=== PATIENT | female | born 1975 | race Caucasian/White ===

== ENCOUNTER 2022-11-28 22:21 | Inpatient (IN) | payer BC, SELFPAY ==
[2022-11-28 22:22] VITALS: BP 117/81; PULSE 96; RESP 16; TEMP 37.3; O2SAT 98; BMI 26.4
[2022-11-28 22:46] LABS: Bacteria 0 SEEN /hpf (None Seen); Mucous, Urine 0 SEEN /hpf (<or=2+); Red Blood Cells-Urine 0 SEEN /hpf (0-5); Squamous Epithelial Cells - UA 0 SEEN /hpf (5-10); White Blood Cells 0 SEEN /hpf (0-5)
[2022-11-28 22:46] LABS: Absolute Lymphocyte Count 1.08 X10^3/uL (0.83-4.51); Basophil# 0.04 X10^3/uL; Basophil% 0.3 % (0-1); Eosinophil# 0.06 X10^3/uL; Eosinophils% 0.4 % (0-5); Hematocrit 41.4 % (37-47); Hemoglobin 14.4 g/dL (12.0-15.0); Lymphocyte # 1.08 X10^3/ul (0.83-4.51); Lymphocyte % 7.2 % (19-41); Mean Corp Hgb Conc 34.8 g/dL (32-36); Mean Corpuscular Hgb 30.8 pg (27.0-32.0); Mean Corpuscular Volume 88.5 fL (81-99); Mean Platelet Vol. 9.8 fl (6.2-12.0); Monocyte# 0.83 X10^3/uL; Monocyte% 5.5 % (0-10); NRBC Flagged by Analyzer 0 % (0-5); Neutrophil # 12.95 X10^3/uL (2.7-7.7); Neutrophil % 86.3 % (47-70); Platelet Count 246 K/mm3 (150-450); RBC Distribution Width CV 11.9 % (11.6-14.6); RBC Distribution Width SD 38.2 fl (35.1-43.9); Red Blood Count 4.68 M/mm3 (4.2-5.4)
[2022-11-28 22:58] LABS: Color, Urine Yellow (Yellow); Glucose, Dipstick Normal (Normal); Ketone-Dipstick Negative (Negative); Leukocyte Esterase-Dipstick Negative /ul (Negative); Nitrite-Dipstick Negative (Negative); Occult Blood-Urine 10 /ul (Negative); Protein-Dipstick Negative (Negative); Urine Bilirubin Dipstick Negative (Negative); Urine Clarity Clear (Clear); Urine Urobilinogen Normal (Normal)
[2022-11-28 23:01] LABS: Internal QC Validated? YES +Cl - CLEAR BKGD; Pregnancy, Serum, hCG Quali. NEGATIVE Negative
[2022-11-28 23:25] LABS: Anion Gap 8 (5-15); BUN 9 mg/dL (7-18); BUN/Creat Ratio 12.4 RATIO (10-20); Calcium,Total 9.7 mg/dL (8.5-10.1); Chloride 106 mmol/L (98-107); Creatinine, Serum 0.72 mg/dL (0.55-1.02); EST Glomerular Filtration Rate 92 mL/min (>60); Est Glom Filt Rate - Afr Amer 111 mL/min (>60); Estimated Creatinine Clearance 94.94 ml/min; Glucose 129 mg/dL (74-106); Potassium 4.8 mmol/L (3.5-5.1); Sodium Level 137 mmol/L (136-145)
[2022-11-29] VITALS (8 sets, daily range): BP systolic 126–146; BP diastolic 75–105; PULSE 79–85; RESP 14–19; TEMP 36.6–37.3; O2SAT 96–99; BMI 26.1
--- NOTE | 2022-11-29 00:59 | CT_ITS ---
We are attempting to reach an attending provider to discuss findings. An addendum with communication details will be sent when the communication is complete. EXAM: CT ABDOMEN AND PELVIS WITH INTRAVENOUS CONTRAST CLINICAL INDICATION: LLQ pain TECHNIQUE: Helically acquired images were obtained of the abdomen and pelvis with intravenous contrast. This CT exam was performed using one or more of the following dose reduction techniques: automated exposure control, adjustment of the mA and/or kV according to patient size, and/or use of iterative reconstruction technique. This report was created using [employer] report api[employer]mat technology. CONTRAST: 100 cc of Isovue-300 IV. RADIATION DOSE: CTDIvol = 17.01 mGy, DLP = 899.68 mGy-cm. COMPARISON: None. FINDINGS: LOWER THORAX: Unremarkable. Lung bases are clear. No cardiomegaly. No significant pericardial effusion. ABDOMEN: LIVER: There is diffuse low-attenuation of the liver. GALLBLADDER AND BILE DUCTS: Unremarkable. No calcified gallstones. No gallbladder distention or wall edema. No intra- or extrahepatic biliary ductal dilation. PANCREAS: Unremarkable. No focal cystic or solid mass. SPLEEN: Unremarkable. Normal size without focal cystic or solid mass. ADRENALS: Unremarkable. No nodules. KIDNEYS AND URETERS: Multiple small cysts right kidney. Normal renal size and position. No hydronephrosis. STOMACH AND BOWEL: Marked edematous wall thickening of the proximal sigmoid colon in an area of numerous diverticula over a length of about 7 cm with marked pericolonic edema and small extraluminal gas bubbles. No discrete fluid collection identified. No stomach or bowel distention. PELVIS: APPENDIX: Normal appendix. BLADDER: Unremarkable. REPRODUCTIVE: IUD in the uterus. ABDOMEN and PELVIS: INTRAPERITONEAL SPACE: See above. BONES/JOINTS: Unremarkable. No suspicious lytic or blastic abnormality. SOFT TISSUES: Unremarkable. No discrete abdominal or pelvic wall hernia. VASCULATURE: Unremarkable. Abdominal aorta is non-dilated. LYMPH NODES: Unremarkable. No enlarged lymph nodes. CT/Abdomen/Pelvis W IV Cont ONLY IMPRESSION: 1. Perforated diverticulitis involving the proximal sigmoid colon with marked pericolonic inflammatory changes. No discrete abscess. 2. Fatty liver. 3. IUD in the uterus. 4. Multiple small cysts right kidney. No follow-up imaging necessary. Electronically Signed: Nik Oliveira MD at 2:09 EST ,
[2022-11-29] MEDS: Ketorolac 30 MG/ML Syringe IV (01:10)
[2022-11-29] MEDS: Ondansetron 4 MG/2 ML Vial IV ×2 (01:10→18:39)
--- NOTE | 2022-11-29 02:46 | EX.ED.DYSGE1 ---
HPI History of Present Illness Chief Complaint: Flank Pain Narrative Narrative: Patient is a 47-year-old female who is otherwise healthy. She states that she went out to lunch with her daughter today and after eating developed some pain in the left side of her abdomen. She states the pain was mild in nature and occurred just while sitting at rest as there was no trauma or excessive activity prior to this event. She reports as time passed she developed a fever up to 100.4 at home with increasing abdominal pain and a small amount of loose stool. She states secondary to the development of the fever and increasing pain she was concerned about an infectious process and therefore comes in for evaluation [facility] Medical History (Updated 11/29/22 @ 02:[address] Javier River, DO) delivery delivered Hypertension Ovarian cyst Home Medications NK 11/29/22 [History Last Taken Unknown] Allergy/AdvReac Type Severity Reaction Status Date / Time No Known Allergies Allergy Verified 11/28/22 22:27 Social History Smoking Status: Never smoker ROS [facility] ED Constitutional Constitutional ED: Reports fever(s); Denies chills ENT ENT ED: Denies sore throat Cardiovascular Cardiovascular: Denies chest pain Respiratory/Chest Respiratory/Chest: Denies cough or dyspnea Gastrointestinal Gastrointestinal: Reports abdominal pain, diarrhea and nausea; Denies vomiting Genitourinary Genitourinary ED: Denies dysuria or urinary frequency Musculoskeletal Musculoskeletal: Reports back pain; Denies myalgias Integumentary Denies rash Neurologic Neurologic: Denies headache(s) Hematologic/Lymphatic Hematologic/Lymphatic: Denies easy bleeding or easy bruising EXAM Physical Exam Const Vital Signs: 11/28/22 22:22 Temperature 99.2 F H Temperature Source Temporal Pulse Rate 96 Respiratory Rate 16 Blood Pressure 117/81 H Blood Pressure Mean 93 Pulse Ox 98 Oxygen Delivery Method Room Air Positive well nourished and well developed General Appearance ED: well developed HEENT Reports moist mucous membranes Eyes PERRL and EOMs intact bilaterally General Eye ED: Negative for scleral icterus Neck supple Resp normal respiratory effort and clear to auscultation bilaterally Cardio regular rate and regular rhythm Rate: other Other Details: Radial pulses are plus 2 out of 4 bilaterally are equal and symmetric GI non-distended GI Narrative: Abdomen is soft and nondistended with normoactive bowel sounds. There is pain on palpation along the left lower mid and upper abdomen with mild voluntary guarding in the left lower and mid region. No rebound or rigidity. No pulsatile mass or fluid wave. Auscultation: normoactive bowel sounds Palpation: soft Back/Spine Back/Spine Narrative: Positive left CVA pain Extremity normal to inspection Neuro oriented x3 and CN's II-XII intact bilaterally Sensorium / Orientation: alert Psych mental status grossly normal Skin no rashes or lesions noted General Skin Exam: Negative for jaundice MDM MDM MDM Narrative Medical decision making narrative: Patient presented to the ER with stable vitals and was afebrile despite her reported fever at home but also reported taking Tylenol/ibuprofen prior to arrival. She had pain along the left sided abdomen diffusely with guarding and there was concern this could be an infectious process such as diverticulitis or possible obstructed kidney stone as she also had acute CVA pain. Secondary to this basic blood work with a urine sample was obtained. The patient's white count is slightly elevated at 15 but there are no signs of acute kidney injury or severe electrolyte. Urine showed no signs of UTI but there is a small amount of blood present. As this could be correlating with kidney stone and the white count possibly secondary to infectious process I did elect to perform a CT with IV contrast. This showed diffuse inflammation along the lower sigmoid colon consistent with diverticulitis. However there is also note of perforation. With the perforation changing this from simple to complex diverticulitis the case was discussed with general surgery. At this time they agree that patient is hemodynamically stable without signs of septicemia but because of the complicated diverticulitis patient should receive IV antibiotics and be watched in the hospital. Secondary to this blood cultures were obtained she was started on Zosyn and will be admitted to the general surgery service for further care. History & Record Review Discussion w/independent historian: Patient and Significant other Lab Data Attestation: I reviewed the patient's lab results. Labs: Laboratory Results - last 24 hr 11/28/22 11/28/22 11/28/22 22:35 22:35 22:35 WBC 15.0 H RBC 4.68 Hgb 14.4 Hct 41.4 MCV 88.5 MCH 30.8 MCHC 34.8 RDW Std Deviation 38.2 RDW Coeff of Adele 11.9 Plt Count 246 MPV 9.8 Immature Gran % (Auto) 0.300 Neut % (Auto) 86.3 H Lymph % (Auto) 7.2 L [place] % (Auto) 5.5 Eos % (Auto) 0.4 Baso % (Auto) 0.3 Absolute Neuts (auto) 13.0 H Absolute Lymphs (auto) 1.08 Nucleated RBC % 0 Sodium 137 Potassium 4.8 Chloride 106 Carbon Dioxide 23.0 Anion Gap 8 BUN 9 Creatinine 0.72 Estim Creat Clear Calc 94.94 Est GFR (MDRD) Af Amer 111 Est GFR (MDRD) Non-Af 92 BUN/Creatinine Ratio 12.4 Glucose 129 H Calcium 9.7 Serum , Qual NEGATIVE Urine Color Urine Clarity Urine pH Ur Specific [place] Urine Protein Urine Glucose (UA) Urine Ketones Urine Occult Blood Urine Nitrite Urine Bilirubin Urine Urobilinogen Ur Leukocyte Esterase Urine RBC Urine WBC Ur Squamous Epith Cells Urine Bacteria Urine Mucus 11/28/22 22:40 WBC RBC Hgb Hct MCV MCH MCHC RDW Std Deviation RDW Coeff of Adele Plt Count MPV Immature Gran % (Auto) Neut % (Auto) Lymph % (Auto) [place] % (Auto) Eos % (Auto) Baso % (Auto) Absolute Neuts (auto) Absolute Lymphs (auto) Nucleated RBC % Sodium Potassium Chloride Carbon Dioxide Anion Gap BUN Creatinine Estim Creat Clear Calc Est GFR (MDRD) Af Amer Est GFR (MDRD) Non-Af BUN/Creatinine Ratio Glucose Calcium Serum , Qual Urine Color Yellow Urine Clarity Clear Urine pH 6.0 Ur Specific [place] 1.010 Urine Protein Negative Urine Glucose (UA) Normal Urine Ketones Negative Urine Occult Blood 10 H Urine Nitrite Negative Urine Bilirubin Negative Urine Urobilinogen Normal Ur Leukocyte Esterase Negative Urine RBC 0 SEEN Urine WBC 0 SEEN Ur Squamous Epith Cells 0 SEEN Urine Bacteria 0 SEEN Urine Mucus 0 SEEN Radiography Diagnostic Testing: Clinical Impression(s) from Imaging Studies Abdomen/Pelvis CT 11/29/22 00:59 IMPRESSION: 1. Perforated diverticulitis involving the proximal sigmoid colon with marked pericolonic inflammatory changes. No discrete abscess. 2. Fatty liver. 3. IUD in the uterus. 4. Multiple small cysts right kidney. No follow-up imaging necessary. Electronically Signed: Nik Oliveira MD at 2:09 EST , ADDENDUM: 11/29/22 0221 IMPRESSION: 1. Perforated diverticulitis involving the proximal sigmoid colon with marked pericolonic inflammatory changes. No discrete abscess. 2. Fatty liver. 3. IUD in the uterus. 4. Multiple small cysts right kidney. No follow-up imaging necessary. N.B. : The above Results were Read Back by Nik Oliveira MD to Javier River DO, and understanding confirmed on 11/29/2022 02:14:07 (ET). Electronically Signed: Nik Oliveira MD at 2:09 EST , Discharge Plan Dx/Rx/DC Orders Clinical Impression: Diverticulitis of intestine with perforation Disposition Disposition: Acute Care Hospital [facility] Discharge Date/Time: 11/29/22 03:36
[2022-11-29] MEDS: 0.9% Normal Saline 1,000 ML 125 ML IV ×3 (05:20→23:59)
[2022-11-29] MEDS: Acetaminophen 325 MG Tablet 650 MG PO ×3 (05:23→21:45)
--- NOTE | 2022-11-29 08:44 | PCM.HP.STD ---
HPI - General General Date of Admission: 11/29/22 Date of Service: 11/29/22 Chief Complaint: Acute abdominal pain HPI Narrative MEL SOLIS, is a 47 F who presented to [facility] ER late in the evening of 11/28/2022 after she began experiencing acute onset left abdominal/flank pain shortly after leaving a little nail salon with her daughter. She notes that this pain was associated with nausea and vomiting. She also confirms both low-grade fevers and chills at home. She initially believed her pains were gas pains, but when they did not dissipate on their own she decided to seek evaluation. She initially went through a telehealth option with her insurance, but was ultimately directed to present to the emergency room. Emergency room patient's CBC is remarkable for leukocytosis of 15,[address] imaging confirmed evidence of complicated diverticulitis in the sigmoid colon region with pericolonic gas bubbles. Patient states that she is overall healthy and although she is diagnosed with hypertension, she is not prescribed antihypertensives. She has no prior history of diverticulitis. She has never undergone colonoscopy. Past surgical history includes prior ovarian cystectomy, , right oophorectomy Family history significant for complicated diverticulitis in mother [facility] Medical History (Updated 11/29/22 @ 02:[address] Javier River, DO) delivery delivered Hypertension Ovarian cyst Home Medications NK 11/29/22 [History Last Taken Unknown] Allergy/AdvReac Type Severity Reaction Status Date / Time lisinopril AdvReac Other Verified 11/29/22 09:25 Social History Smoking Status: Never smoker ROS Constitutional Constitutional: Reports chills, fever(s) and night sweats; Denies change in weight Gastrointestinal Gastrointestinal: Reports abdominal pain, diarrhea, nausea and vomiting; Denies hematochezia Vital Signs Vital Signs Vital Signs: 11/28/22 22:22 11/29/22 04:11 11/29/22 03:17 Temperature 99.2 F H 98.1 F 97.8 F Temperature Source Temporal Oral Oral Pulse Rate 96 85 79 Respiratory Rate 16 18 19 H Blood Pressure 117/81 H 138/102 H 146/105 H Blood Pressure Mean 93 114 118 Blood Pressure Source Monitor Blood Pressure Position Semi-Fowlers Blood Pressure Location Left Arm Pulse Ox 98 97 99 Oxygen Delivery Method Room Air Room Air Room Air 11/29/22 04:12 11/29/22 08:33 Temperature 98.1 F 97.8 F Temperature Source Oral Oral Pulse Rate 85 83 Respiratory Rate 18 17 Blood Pressure 138/102 H 137/101 H Blood Pressure Mean 114 113 Blood Pressure Source Monitor Blood Pressure Position Semi-Fowlers Blood Pressure Location Left Arm Pulse Ox 97 98 Oxygen Delivery Method Room Air Room Air Weight Weight: 166 lb 14.239 oz Body Mass Index (BMI) 26.1 Physical Exam Const alert and oriented x3 Constitutional Narrative: Mild distress from abdominal discomfort General Appearance: cooperative GI GI Narrative: Mildly distended, soft,, tender to palpation in the left lower quadrant with a rating of 4/10 Results Lab / Micro Data Result Diagrams: 11/29/22 08:35 11/29/22 08:35 Labs: Laboratory Results - last 24 hr 11/28/22 22:35: WBC 15.0 H, RBC 4.68, Hgb 14.4, Hct 41.4, MCV 88.5, MCH 30.8, MCHC 34.8, RDW Std Deviation 38.2, RDW Coeff of Adele 11.9, Plt Count 246, MPV 9.8, Immature Gran % (Auto) 0.300, Neut % (Auto) 86.3 H, Lymph % (Auto) 7.2 L, [place] % (Auto) 5.5, Eos % (Auto) 0.4, Baso % (Auto) 0.3, Absolute Neuts (auto) 13.0 H, Absolute Lymphs (auto) 1.08, Nucleated RBC % 0 11/28/22 22:35: Sodium 137, Potassium 4.8, Chloride 106, Carbon Dioxide 23.0, Anion Gap 8, BUN 9, Creatinine 0.72, Estim Creat Clear Calc 94.94, Est GFR (MDRD) Af Amer 111, Est GFR (MDRD) Non-Af 92, BUN/Creatinine Ratio 12.4, Glucose 129 H, Calcium 9.7 11/28/22 22:35: Serum , Qual NEGATIVE 11/28/22 22:40: Urine Color Yellow, Urine Clarity Clear, Urine pH 6.0, Ur Specific [place] 1.010, Urine Protein Negative, Urine Glucose (UA) Normal, Urine Ketones Negative, Urine Occult Blood 10 H, Urine Nitrite Negative, Urine Bilirubin Negative, Urine Urobilinogen Normal, Ur Leukocyte Esterase Negative, Urine RBC 0 SEEN, Urine WBC 0 SEEN, Ur Squamous Epith Cells 0 SEEN, Urine Bacteria 0 SEEN, Urine Mucus 0 SEEN Radiology Impression Abdomen/Pelvis CT 11/29/22 00:59 IMPRESSION: 1. Perforated diverticulitis involving the proximal sigmoid colon with marked pericolonic inflammatory changes. No discrete abscess. 2. Fatty liver. 3. IUD in the uterus. 4. Multiple small cysts right kidney. No follow-up imaging necessary. Electronically Signed: Nik Oliveira MD at 2:09 EST , ADDENDUM: 11/29/22 0221 IMPRESSION: 1. Perforated diverticulitis involving the proximal sigmoid colon with marked pericolonic inflammatory changes. No discrete abscess. 2. Fatty liver. 3. IUD in the uterus. 4. Multiple small cysts right kidney. No follow-up imaging necessary. N.B. : The above Results were Read Back by Nik Oliveira MD to Javier River DO, and understanding confirmed on 11/29/2022 02:14:07 (ET). Electronically Signed: Nik Oliveira MD at 2:09 EST , Assessment & Plan Assessment/Plan (1) Diverticulitis of intestine with perforation: PLAN: This is a 47-year-old, otherwise healthy, female who presented to [facility] with signs and symptoms of acute diverticulitis?complicated [place] 1 type. She appears to be responding favorably already to conservative measures with this diagnosis as she was seen multiple times throughout hospital day 1 and had progressive improvements in her abdominal discomfort. We held a lengthy conversation around her diagnosis and the natural history for diverticulitis?specifically with complication. I shared with her our goals to proceed with conservative measures, transition her to oral antibiotics, and ultimately plan for a diagnostic colonoscopy with offerings for possible elective segmental colectomy. I have stressed to her that each step in this progression is dependent on her response to therapy and cannot be easily prognosticate it ahead of time. She appears motivated. She also shares that she is transitioning jobs and she may require transition of her care in the near future. Plan: Neuro: As needed acetaminophen, ibuprofen, and Dilaudid (patient has expressed a wish to avoid opiates as much as possible) Pulm/CV: No current issues, monitor blood pressure but have informed nursing that I do not want to treat mild hypertension as this simply represents patient's appropriate stress response to this infection FEN/GI: Daily electrolytes with labs?replete as needed, initially n.p.o., but advance to clear liquid diet without carbonation : No acute issues Heme/ID: Daily CBC, empiric IV antibiotics with Zosyn. We will plan to transition to oral regimen once patient tolerating diet Endo: No acute issues Proph: SCDs and patient encouraged to ambulate Dispo: Continue inpatient care Charges/Coding Visit Charges Inpatient E&M: 28118 Init Hosp L2
[2022-11-29 08:58] LABS: Absolute Lymphocyte Count 1.08 X10^3/uL (0.83-4.51); Absolute Neutrophil Count 9.7 X10^3/uL (2.0-7.7); Basophil# 0.04 X10^3/uL; Basophil% 0.3 % (0-1); Eosinophil# 0.07 X10^3/uL; Eosinophils% 0.6 % (0-5); Hematocrit 38.9 % (37-47); Hemoglobin 13.4 g/dL (12.0-15.0); Lymphocyte # 1.08 X10^3/ul (0.83-4.51); Lymphocyte % 8.9 % (19-41); Mean Corp Hgb Conc 34.4 g/dL (32-36); Mean Corpuscular Hgb 30.5 pg (27.0-32.0); Mean Corpuscular Volume 88.6 fL (81-99); Mean Platelet Vol. 10.2 fl (6.2-12.0); Monocyte% 9.9 % (0-10); NRBC Flagged by Analyzer 0 % (0-5); Neutrophil # 9.71 X10^3/uL (2.7-7.7); Neutrophil % 79.8 % (47-70); Platelet Count 224 K/mm3 (150-450); RBC Distribution Width CV 11.9 % (11.6-14.6); Red Blood Count 4.39 M/mm3 (4.2-5.4); White Blood Count 12.2 K/mm3 (4.4-11.0)
[2022-11-29 09:19] LABS: Anion Gap 10 (5-15); BUN 8 mg/dL (7-18); BUN/Creat Ratio 12.6 RATIO (10-20); Chloride 107 mmol/L (98-107); Creatinine, Serum 0.63 mg/dL (0.55-1.02); EST Glomerular Filtration Rate 107 mL/min (>60); Est Glom Filt Rate - Afr Amer 130 mL/min (>60); Estimated Creatinine Clearance 108.51 ml/min; Glucose 110 mg/dL (74-106); Potassium 3.5 mmol/L (3.5-5.1); Sodium Level 140 mmol/L (136-145)
[2022-11-29] MEDS: Ibuprofen 400 MG Tablet PO ×3 (09:48→23:58)
--- NOTE | 2022-11-29 15:30 | CASEMGMT ---
RN?CM?SPEECH AND DRAMA TEACHER?CM?to room to meet with patient for initial transition planning/care coordination?assessment.?RN?CM?introduced self and role at [facility].? Pt voices understanding and consents to?assessment?at this time.? Pt resting in bed in no distress at this time.? Pt is A/O at this time and answers all questions appropriately.?? Care providers, pharmacy, and demographics verified/updated at this time. PCP: Dr Alexandro Roy Specialists: none Preferred Pharmacy: [facility] Insurance: [place] Prescription Benefit:?Yes Living Will/HPOA:?Pt does not currently have LW/HCPOA and interested in completing. SW, Dawn, made aware. Pt made aware, if SW unable to meet w/her before she is discharged that she can make an appt as an OP to have these completed. LNOK: , Hank. Dtr and son. Living Arrangements: Lives w/ and son. Independent. Transportation:?Pt states drives self and states no transportation concerns at this time. also drives. ? DME: ? Denies using any DME and denies needs.? HHC/SNF: No hx of either. No needs identified. Pt wishes to return home and states has no concerns with going home at time of discharge.? CM?to follow for any discharge planning/needs.? Pt voices no further concerns/needs at this time.? Advised pt to ask for?CM?if any further questions/concerns/needs arise.? Voices understanding. PLAN:??Home Vivienne ROJON?RN?CM
[2022-11-29] MEDS: 0.9% Saline Lock 10 ML Syringe IV (18:39)
[2022-11-30 03:45] VITALS: BP 113/68; PULSE 85; RESP 18; TEMP 37.6; O2SAT 97
[2022-11-30] MEDS: Acetaminophen 325 MG Tablet 650 MG PO ×4 (03:52→23:03)
[2022-11-30 03:57] VITALS: BP 113/68; PULSE 85; RESP 18; TEMP 37.6; O2SAT 97
[2022-11-30] MEDS: Ibuprofen 400 MG Tablet PO ×3 (06:32→20:13)
[2022-11-30 06:36] LABS: Absolute Lymphocyte Count 0.93 X10^3/uL (0.83-4.51); Absolute Neutrophil Count 10.3 X10^3/uL (2.0-7.7); Basophil# 0.04 X10^3/uL; Basophil% 0.3 % (0-1); Eosinophil# 0.07 X10^3/uL; Eosinophils% 0.6 % (0-5); Hematocrit 36.9 % (37-47); Hemoglobin 12.3 g/dL (12.0-15.0); Lymphocyte # 0.93 X10^3/ul (0.83-4.51); Lymphocyte % 7.4 % (19-41); Mean Corp Hgb Conc 33.3 g/dL (32-36); Mean Corpuscular Hgb 30.4 pg (27.0-32.0); Mean Corpuscular Volume 91.3 fL (81-99); Mean Platelet Vol. 10.5 fl (6.2-12.0); Monocyte# 1.18 X10^3/uL; Monocyte% 9.4 % (0-10); NRBC Flagged by Analyzer 0 % (0-5); Neutrophil # 10.25 X10^3/uL (2.7-7.7); Neutrophil % 81.7 % (47-70); Platelet Count 207 K/mm3 (150-450); RBC Distribution Width CV 11.9 % (11.6-14.6); RBC Distribution Width SD 39.9 fl (35.1-43.9); Red Blood Count 4.04 M/mm3 (4.2-5.4); White Blood Count 12.6 K/mm3 (4.4-11.0)
[2022-11-30 07:17] LABS: Anion Gap 8 (5-15); BUN 6 mg/dL (7-18); BUN/Creat Ratio 11.2 RATIO (10-20); Calcium,Total 8.7 mg/dL (8.5-10.1); Chloride 108 mmol/L (98-107); Creatinine, Serum 0.54 mg/dL (0.55-1.02); EST Glomerular Filtration Rate 130 mL/min (>60); Est Glom Filt Rate - Afr Amer 157 mL/min (>60); Estimated Creatinine Clearance 126.59 ml/min; Glucose 112 mg/dL (74-106); Magnesium 2.2 mg/dL (1.6-2.6); Phosphorus 2.2 mg/dL (2.5-4.9); Potassium 3.4 mmol/L (3.5-5.1); Sodium Level 138 mmol/L (136-145)
[2022-11-30] MEDS: 0.9% Saline Lock 10 ML Syringe IV (07:55)
[2022-11-30] MEDS: Ondansetron 4 MG/2 ML Vial IV (07:55)
[2022-11-30] MEDS: HYDROmorphone 0.5 MG/0.5 ML SYRINGE IV (08:04)
--- NOTE | 2022-11-30 08:47 | PN.SURG_ITS ---
Subjective Subjective Patient did states she had increasing pain today and slight increase in white blood cell count. Patient did have some clears yesterday with no increased pain at that time. Patient states yesterday her pain was about a 4/10 tolerable with Tylenol. Patient did get some Dilaudid this morning. Objective Data Objective Data Vital Signs: Vital Signs Temp Pulse Resp BP Pulse Ox O2 Del Method 99.7 F H 85 18 113/68 97 Room Air 11/30/22 03:57 11/30/22 03:57 11/30/22 03:57 11/30/22 03:57 11/30/22 03:57 11/30/22 03:57 Oxygen Delivery Method Room Air Weight: 166 lb 14.239 oz Body Mass Index (BMI) 26.1 Intake & Output: Intake and Output for Last 24 Hours 11/28/22 11/29/22 11/30/22 23:59 23:59 23:59 Intake Total 2579.50 / 2579.50 50 / 50 Balance 2579.50 / 2579.50 50 / 50 Lab / Micro Data Result Diagrams: 11/30/22 05:38 11/30/22 05:38 Labs: Laboratory Results - last 24 hr 11/29/22 08:35: WBC 12.2 H, RBC 4.39, Hgb 13.4, Hct 38.9, MCV 88.6, MCH 30.5, MCHC 34.4, RDW Std Deviation 39.0, RDW Coeff of Adele 11.9, Plt Count 224, MPV 10.2, Immature Gran % (Auto) 0.500, Neut % (Auto) 79.8 H, Lymph % (Auto) 8.9 L, [place] % (Auto) 9.9, Eos % (Auto) 0.6, Baso % (Auto) 0.3, Absolute Neuts (auto) 9.7 H, Absolute Lymphs (auto) 1.08, Nucleated RBC % 0 11/29/22 08:35: Sodium 140, Potassium 3.5, Chloride 107, Carbon Dioxide 23.0, Anion Gap 10, BUN 8, Creatinine 0.63, Estim Creat Clear Calc 108.51, Est GFR (MDRD) Af Amer 130, Est GFR (MDRD) Non-Af 107, BUN/Creatinine Ratio 12.6, Glucose 110 H, Calcium 9.0 11/30/22 05:38: WBC 12.6 H, RBC 4.04 L, Hgb 12.3, Hct 36.9 L, MCV 91.3, MCH 30.4, MCHC 33.3, RDW Std Deviation 39.9, RDW Coeff of Adele 11.9, Plt Count 207, MPV 10.5, Immature Gran % (Auto) 0.600, Neut % (Auto) 81.7 H, Lymph % (Auto) 7.4 L, [place] % (Auto) 9.4, Eos % (Auto) 0.6, Baso % (Auto) 0.3, Absolute Neuts (auto) 10.3 H, Absolute Lymphs (auto) 0.93, Nucleated RBC % 0 11/30/22 05:38: Sodium 138, Potassium 3.4 L, Chloride 108 H, Carbon Dioxide 22.0, Anion Gap 8, BUN 6 L, Creatinine 0.54 L, Estim Creat Clear Calc 126.59, Est GFR (MDRD) Af Amer 157, Est GFR (MDRD) Non-Af 130, BUN/Creatinine Ratio 11.2, Glucose 112 H, Calcium 8.7, Phosphorus 2.2 L, Magnesium 2.2 Physical Exam Const oriented x3 and no apparent distress Resp normal respiratory effort Cardio regular rate GI soft to palpation GI Narrative: Tender in the left lower quadrant, equivocal rebound Inspection: Negative for abdominal distention Assessment & Plan Assessment/Plan (1) Diverticulitis of intestine with perforation: PLAN: Will continue on clears continue to monitor patient's pain. Continue IV Zosyn. Patient white blood count 12.6 from 12 --will continue to monitor. Continue pain control Aminata Cadena M.D. Pager: [phone] [facility] [address] [place] [address], Outpatient Pavilion, [address] [place] [address] Office: [phone]
[2022-11-30 08:49] VITALS: BP 130/85; PULSE 74; RESP 16; TEMP 36.6; O2SAT 96
[2022-11-30] MEDS: 0.9% Normal Saline 1,000 ML 125 ML IV ×2 (10:30→18:29)
[2022-11-30 11:17] VITALS: BP 130/85; PULSE 74; RESP 16; TEMP 36.6
[2022-11-30] MEDS: traMADol 50 MG Tablet PO (13:06)
--- NOTE | 2022-11-30 15:21 | CASEMGMT ---
Social Work Note SW met with patient and patient's family and introduced herself and role as [facility] SW. Patient in agreement to speak to SW with family present. SW inquired about patient's interest in completing AD paperwork, patient states she is interested but not at this time. Patient requests SW return after visiting hours ends to assist with documents. SW explained she would try to return in the evening but if SW is unable, patient has the ability to contact Shrinking Machine Operator after discharge to schedule appointment to complete AD. Patient voiced understanding. Lynda CALDERON, MEGAN
[2022-11-30 16:36] VITALS: BP 133/89; PULSE 81; RESP 16; TEMP 36.5; O2SAT 96
--- NOTE | 2022-11-30 20:32 | CASEMGMT ---
Social Work Note SW met with patient to assist patient in completing Advanced Directives. Patient sitting up in bed and agreeable to complete AD with SW. SW educated patient on her rights as well as her agents rights regarding medical care. Patient identified her daughter as her agent. Patient voiced that she wants to go naturally if terminally ill and agreeable to comfort care only. Patient explained she was not listing her as her agent as patient feels he would do anything and everything to save her life. SW then assisted patient in completing Living Will documents. Patient identified her , daughter and son as individuals the physician should contact if in terminally ill or unconscious state. Patient again voiced she only wants comfort care in the event she is terminally ill or unconscious state. JUAN JOSE then reviewed AD documents with patient and patient's RN Simona. Patient in agreement with AD and able to sign, SW and RN witnessed. JUAN JOSE then provided patient with original copy of AD as well as two copies for her daughter and . SW placed copy in patient's chart. No other needs voiced at this time. Lynda Castro MSW, MEGAN
[2022-11-30 21:41] VITALS: BP 139/93; PULSE 92; RESP 16; TEMP 37.5; O2SAT 98
[2022-12-01] MEDS: 0.9% Normal Saline 1,000 ML 125 ML IV (02:38)
[2022-12-01 03:18] VITALS: BP 134/92; PULSE 77; RESP 16; TEMP 37; O2SAT 100
[2022-12-01] MEDS: Ibuprofen 400 MG Tablet PO ×4 (03:21→22:07)
[2022-12-01 05:00] VITALS: BP 126/78; PULSE 81; RESP 16; TEMP 36.8; O2SAT 100
[2022-12-01] MEDS: Ketorolac 15 MG/ML Vial IV (06:20)
[2022-12-01] MEDS: Acetaminophen 325 MG Tablet 650 MG PO ×3 (06:34→18:51)
[2022-12-01 06:57] LABS: Absolute Lymphocyte Count 1.01 X10^3/uL (0.83-4.51); Absolute Neutrophil Count 8.6 X10^3/uL (2.0-7.7); Basophil# 0.04 X10^3/uL; Basophil% 0.4 % (0-1); Eosinophil# 0.13 X10^3/uL; Eosinophils% 1.2 % (0-5); Hematocrit 33.6 % (37-47); Hemoglobin 11.5 g/dL (12.0-15.0); Lymphocyte # 1.01 X10^3/ul (0.83-4.51); Lymphocyte % 9.3 % (19-41); Mean Corp Hgb Conc 34.2 g/dL (32-36); Mean Corpuscular Volume 90.6 fL (81-99); Mean Platelet Vol. 10.6 fl (6.2-12.0); Monocyte# 0.96 X10^3/uL; Monocyte% 8.9 % (0-10); NRBC Flagged by Analyzer 0 % (0-5); Neutrophil # 8.63 X10^3/uL (2.7-7.7); Neutrophil % 79.8 % (47-70); Platelet Count 190 K/mm3 (150-450); RBC Distribution Width CV 11.9 % (11.6-14.6); RBC Distribution Width SD 39.4 fl (35.1-43.9); Red Blood Count 3.71 M/mm3 (4.2-5.4); White Blood Count 10.8 K/mm3 (4.4-11.0)
[2022-12-01 07:21] LABS: Anion Gap 9 (5-15); BUN 4 mg/dL (7-18); BUN/Creat Ratio 9.5 RATIO (10-20); Calcium,Total 8.3 mg/dL (8.5-10.1); Chloride 111 mmol/L (98-107); Creatinine, Serum 0.42 mg/dL (0.55-1.02); EST Glomerular Filtration Rate 171 mL/min (>60); Est Glom Filt Rate - Afr Amer 207 mL/min (>60); Estimated Creatinine Clearance 162.76 ml/min; Glucose 88 mg/dL (74-106); Phosphorus 2.1 mg/dL (2.5-4.9); Potassium 3.5 mmol/L (3.5-5.1); Sodium Level 139 mmol/L (136-145)
--- NOTE | 2022-12-01 08:30 | PCM.PN.SRG ---
Subjective Subjective Patient still having some left-sided abdominal pain can also feel a little bit on the left when pushing on the right. Patient states it is better and he is she is only been using the Toradol/ibuprofen or Tylenol Objective Data Objective Data Vital Signs: Vital Signs Temp Pulse Resp BP Pulse Ox O2 Del Method 98.2 F 81 16 126/78 H 100 Room Air 12/01/22 05:00 12/01/22 05:00 12/01/22 05:00 12/01/22 05:00 12/01/22 05:00 12/01/22 05:00 Oxygen Delivery Method Room Air Weight: 166 lb 14.239 oz Body Mass Index (BMI) 26.1 Intake & Output: Intake and Output for Last 24 Hours 11/29/22 11/30/22 12/01/22 23:59 23:59 23:59 Intake Total 2579.50 / 2579.50 6801.2533 / 6801.2533 1050 / 1050 Balance 2579.50 / 2579.50 6801.2533 / 6801.2533 1050 / 1050 Lab / Micro Data Result Diagrams: 12/01/22 05:49 12/01/22 05:49 Labs: Laboratory Results - last 24 hr 12/01/22 05:49: WBC 10.8, RBC 3.71 L, Hgb 11.5 L, Hct 33.6 L, MCV 90.6, MCH 31.0, MCHC 34.2, RDW Std Deviation 39.4, RDW Coeff of Adele 11.9, Plt Count 190, MPV 10.6, Immature Gran % (Auto) 0.400, Neut % (Auto) 79.8 H, Lymph % (Auto) 9.3 L, [place] % (Auto) 8.9, Eos % (Auto) 1.2, Baso % (Auto) 0.4, Absolute Neuts (auto) 8.6 H, Absolute Lymphs (auto) 1.01, Nucleated RBC % 0 12/01/22 05:49: Sodium 139, Potassium 3.5, Chloride 111 H, Carbon Dioxide 19.0 L, Anion Gap 9, BUN 4 L, Creatinine 0.42 L, Estim Creat Clear Calc 162.76, Est GFR (MDRD) Af Amer 207, Est GFR (MDRD) Non-Af 171, BUN/Creatinine Ratio 9.5 L, Glucose 88, Calcium 8.3 L, Phosphorus 2.1 L Micro: Microbiology 11/29/22 02:55 Blood Culture (Wb) - Anticubital Left Blood Culture - Preliminary No growth in 48 hours. 11/29/22 02:30 Blood Culture (Wb) - Anticubital Right Blood Culture - Preliminary No growth in 48 hours. Physical Exam Const oriented x3 and no apparent distress Resp normal respiratory effort Cardio regular rate GI soft to palpation GI Narrative: Tender in the left lower quadrant, mild tenderness on the left when pushing on the right Inspection: Negative for abdominal distention Assessment & Plan Assessment/Plan (1) Diverticulitis of intestine with perforation: PLAN: Will continue on clears continue to monitor patient's pain?it is improved however she still does have some mild tenderness on the left when pushing on the right. Continue IV Zosyn. Patient white blood count 10.8 from 12.6--will continue to monitor. Continue pain control Aminata Cadena M.D. Pager: [phone] [facility] [address] [place] [address], [facility], [address] [place] [address] Office: [phone] Charges/Coding Visit Charges Inpatient E&M: 83024 Subs Hosp L2
[2022-12-01 09:01] VITALS: BP 143/94; PULSE 80; RESP 16; TEMP 36.5; O2SAT 98
[2022-12-01 15:24] VITALS: BP 141/96; PULSE 76; RESP 16; TEMP 36.9; O2SAT 96
[2022-12-01 15:25] VITALS: BP 143/94; PULSE 80; RESP 16; TEMP 36.5
[2022-12-01 21:30] VITALS: BP 148/102; PULSE 80; RESP 18; TEMP 36.8; O2SAT 100
[2022-12-02] MEDS: Acetaminophen 325 MG Tablet 650 MG PO ×3 (02:50→18:38)
[2022-12-02 03:30] VITALS: BP 147/98; PULSE 85; RESP 18; TEMP 37; O2SAT 100
[2022-12-02] MEDS: Ibuprofen 400 MG Tablet PO ×2 (04:22→11:59)
--- NOTE | 2022-12-02 04:47 | NURSING ---
Pt right forearm with redness and hardened areas. Pt denies pain or itching. IV infiltrated 12/01 18:48 with zosyn running. Pharmacy called and reported that Zosyn is very low for sensitivity, and that there is no specific treatment or concern. Will continue to monitor.
[2022-12-02 06:01] LABS: Absolute Lymphocyte Count 0.97 X10^3/uL (0.83-4.51); Absolute Neutrophil Count 8.2 X10^3/uL (2.0-7.7); Basophil# 0.04 X10^3/uL; Basophil% 0.4 % (0-1); Hematocrit 34.4 % (37-47); Hemoglobin 11.5 g/dL (12.0-15.0); Lymphocyte # 0.97 X10^3/ul (0.83-4.51); Lymphocyte % 9.5 % (19-41); Mean Corp Hgb Conc 33.4 g/dL (32-36); Mean Corpuscular Hgb 30.6 pg (27.0-32.0); Mean Corpuscular Volume 91.5 fL (81-99); Mean Platelet Vol. 10.8 fl (6.2-12.0); Monocyte# 0.78 X10^3/uL; Monocyte% 7.7 % (0-10); NRBC Flagged by Analyzer 0 % (0-5); Neutrophil # 8.23 X10^3/uL (2.7-7.7); Platelet Count 261 K/mm3 (150-450); RBC Distribution Width CV 11.8 % (11.6-14.6); RBC Distribution Width SD 39.8 fl (35.1-43.9); Red Blood Count 3.76 M/mm3 (4.2-5.4); White Blood Count 10.2 K/mm3 (4.4-11.0)
[2022-12-02 06:32] LABS: Anion Gap 10 (5-15); BUN 4 mg/dL (7-18); Chloride 109 mmol/L (98-107); Creatinine, Serum 0.44 mg/dL (0.55-1.02); EST Glomerular Filtration Rate 162 mL/min (>60); Est Glom Filt Rate - Afr Amer 196 mL/min (>60); Estimated Creatinine Clearance 155.36 ml/min; Glucose 90 mg/dL (74-106); Magnesium 2.1 mg/dL (1.6-2.6); Phosphorus 2.4 mg/dL (2.5-4.9); Potassium 3.6 mmol/L (3.5-5.1); Sodium Level 139 mmol/L (136-145)
[2022-12-02 08:02] VITALS: BP 147/98; PULSE 85; RESP 18; TEMP 37; O2SAT 100
[2022-12-02] MEDS: Ketorolac 15 MG/ML Vial IV ×2 (09:07→18:39)
[2022-12-02] MEDS: 0.9% Saline Lock 10 ML Syringe IV ×2 (09:09→18:39)
[2022-12-02 09:15] VITALS: BP 145/103; PULSE 71; RESP 18; TEMP 36.5; O2SAT 98
--- NOTE | 2022-12-02 09:16 | PCM.PN.SRG ---
Subjective Subjective Patient evaluated resting comfortably in bed. She noted pain overnight. She denies fever and chills since yesterday morning. She states the pain in the left lower quadrant is a 6-7 out of 10 with palpation. She denies feeling hungry. She has not had a bowel movement since . Objective Data Objective Data Vital Signs: Vital Signs Temp Pulse Resp BP Pulse Ox O2 Del Method 98.6 F 85 18 147/98 H 100 Room Air 12/02/22 08:02 12/02/22 08:02 12/02/22 08:02 12/02/22 08:02 12/02/22 08:02 12/02/22 08:58 Oxygen Delivery Method Room Air Weight: 166 lb 14.239 oz Body Mass Index (BMI) 26.1 Intake & Output: Intake and Output for Last 24 Hours 11/30/22 12/01/22 12/02/22 23:59 23:59 23:59 Intake Total 6801.2533 / 6801.2533 6446.2533 / 6446.2533 50 / 50 Balance 6801.2533 / 6801.2533 6446.2533 / 6446.2533 50 / 50 Lab / Micro Data Result Diagrams: 12/02/22 04:07 12/02/22 04:07 Labs: Laboratory Results - last 24 hr 12/02/22 04:07: WBC 10.2, RBC 3.76 L, Hgb 11.5 L, Hct 34.4 L, MCV 91.5, MCH 30.6, MCHC 33.4, RDW Std Deviation 39.8, RDW Coeff of Adele 11.8, Plt Count 261, MPV 10.8, Immature Gran % (Auto) 0.400, Neut % (Auto) 81.0 H, Lymph % (Auto) 9.5 L, [place] % (Auto) 7.7, Eos % (Auto) 1.0, Baso % (Auto) 0.4, Absolute Neuts (auto) 8.2 H, Absolute Lymphs (auto) 0.97, Nucleated RBC % 0 12/02/22 04:07: Sodium 139, Potassium 3.6, Chloride 109 H, Carbon Dioxide 20.0 L, Anion Gap 10, BUN 4 L, Creatinine 0.44 L, Estim Creat Clear Calc 155.36, Est GFR (MDRD) Af Amer 196, Est GFR (MDRD) Non-Af 162, BUN/Creatinine Ratio 9.0 L, Glucose 90, Calcium 9.0, Phosphorus 2.4 L, Magnesium 2.1 Micro: Microbiology 11/29/22 02:55 Blood Culture (Wb) - Anticubital Left Blood Culture - Preliminary No growth in 48 hours. 11/29/22 02:30 Blood Culture (Wb) - Anticubital Right Blood Culture - Preliminary No growth in 48 hours. Physical Exam Const alert, oriented x3 and no apparent distress GI soft to palpation Palpation: tender LLQ, guarding LLQ and hernia umbilical Assessment & Plan Assessment/Plan (1) Diverticulitis of intestine with perforation: PLAN: Labs reviewed. Plan to replace phos Increase diet to include full liquids and add ensure for protein Patient continues to have pain with palpation. We will continue to keep the patient hospitalized with IV antibiotics. We will continue to monitor this patient. Possible discharge tomorrow. Charges/Coding Visit Charges Inpatient E&M: 99581 Subs Hosp L2
[2022-12-02] MEDS: Ensure Plus High Protein 120 ML LIQUID PO ×2 (11:54→16:52)
[2022-12-02 15:00] VITALS: BP 147/98; PULSE 85; RESP 18; TEMP 37; O2SAT 100
[2022-12-02 15:15] VITALS: BP 143/96; PULSE 78; RESP 18; TEMP 37.1; O2SAT 98
--- NOTE | 2022-12-02 15:52 | NURSING ---
Report called to [facility] Rivero for pt to be transferred to [facility]
[2022-12-02 20:47] VITALS: BP 146/99; PULSE 80; RESP 18; TEMP 36.7; O2SAT 98
[2022-12-03] VITALS (11 sets, daily range): BP systolic 137–161; BP diastolic 78–118; PULSE 74–116; RESP 16–18; TEMP 36.4–37.1; O2SAT 97–99
[2022-12-03] MEDS: Acetaminophen 325 MG Tablet 650 MG PO ×2 (00:46→06:54)
[2022-12-03] MEDS: 0.9% Saline Lock 10 ML Syringe IV ×5 (05:56→20:19)
[2022-12-03] MEDS: metroNIDAZOLE 500 MG/100 ML BAG 100 MG IV (06:46)
[2022-12-03] MEDS: Ensure Plus High Protein 120 ML LIQUID PO ×3 (08:26→16:00)
--- NOTE | 2022-12-03 10:36 | PN.SURG_ITS ---
Subjective Subjective Patient seen and examined during AM rounds. She is found resting in the chair. She states that she is feeling much better today and that her full liquid diet advancement was agreeable to her. She confirms overnight reports about a facial rash that has largely dissipated at this point. She states she is confused because she was on both the medications that were discontinued (Toradol and Zosyn). She reports her abdominal discomfort at approximately 3 out of 10 this morning. She is eager to go home. Objective Data Objective Data Vital Signs: Vital Signs Temp Pulse Resp BP Pulse Ox O2 Del Method 97.5 F L 77 16 145/98 H 99 Room Air 12/03/22 05:48 12/03/22 05:48 12/03/22 05:48 12/03/22 05:48 12/03/22 05:48 12/03/22 05:48 Oxygen Delivery Method Room Air Weight: 166 lb 14.239 oz Body Mass Index (BMI) 26.1 Intake & Output: Intake and Output for Last 24 Hours 12/01/22 12/02/22 12/03/22 23:59 23:59 23:59 Intake Total 6446.2533 / 6446.2533 1059.17 / 1059.17 100 / 100 Balance 6446.2533 / 6446.2533 1059.17 / 1059.17 100 / 100 Lab / Micro Data Result Diagrams: 12/02/22 04:07 12/02/22 04:07 Micro: Microbiology 11/29/22 02:55 Blood Culture (Wb) - Anticubital Left Blood Culture - Preliminary No growth in 48 hours. 11/29/22 02:30 Blood Culture (Wb) - Anticubital Right Blood Culture - Prelim inary No growth in 48 hours. Physical Exam Const oriented x3 and no apparent distress Resp normal respiratory effort GI GI Narrative: Less distended, soft, minimally tender to palpation in the left lower quadrant (patient rating this a 3 out of 10) Assessment & Plan Assessment/Plan (1) Diverticulitis of intestine with perforation: PLAN: Patient with improved abdominal discomfort, but still significant and a 3 out of 10. We will plan to transition to oral antibiotics. Given patient's rash with Zosyn, will need to monitor for tolerance of p.o penicillin (this is my preference over Cipro Flagyl given antibiogram that suggest resistance to fluoroquinolones). Continue full liquids and ensure for protein Patient continues to have pain with palpation. However, we will transition to Augmentin 875 mg twice daily and monitor for tolerance Possible discharge tomorrow. Charges/Coding Visit Charges Inpatient E&M: 72814 Subs Hosp L2
[2022-12-03] MEDS: traMADol 50 MG Tablet PO ×2 (11:59→20:55)
--- NOTE | 2022-12-03 13:49 | NURSING ---
Pt has a headache. pt states she gets a headache like this when my blood pressure is high. BP checked, see vital signs. Pt states she takes norvasc 10mg but prn. Pt stated she is supposed to take daily but only takes prn as she tries to do other things to help her bp like diet and excercise.
[2022-12-03] MEDS: amLODIPine 10 MG Tablet PO (14:54)
[2022-12-03] MEDS: Ondansetron 4 MG/2 ML Vial IV (15:30)
[2022-12-03] MEDS: hydrALAZINE 20 MG/ML Vial 10 MG IV ×2 (15:59→17:47)
--- NOTE | 2022-12-03 17:36 | NURSING ---
Immediately after taking norvasc pt got nauseated, about 30min after taking it pt states she vomitted but did not see the norvasc in the vomit. Pt states her CLANCY is worse. Pt thinks there is a correlation with CLANCY, HTN, and nausea. Dr. Acevedo came in to see pt while this nurse was giving zofran. Dr. Acevedo made aware of all the above. Order for apresoline x1 10mg iv obtained and given to pt. Pt was anxious during and after this RN giving apresoline. BP taken several times and did not seem to get any better. Cool wash cloth given to pt for her head. Pt stating we need something for my blood pressure. This RN called Dr. Acevedo, Dr. Acevedo ordered 1gm of tylenol x1 now. This RN went in to room to give to pt and pt took wash cloth off head and threw it across the room and started crying. I know its my blood pressure, Tylenol is not going to work. Sobbing. This is the worse headache and it keeps getting worse. This RN called Dr. Acevedo back and informed him that pt refused tylenol. Dr. Acevedo wants me to give another 10mg apresoline iv now to see if it helps.
[2022-12-03] MEDS: Acetaminophen 500 MG Tablet 1000 MG PO (18:11)
--- NOTE | 2022-12-03 18:15 | EKG12_ITS ---
Test Reason : RAPID HR Blood Pressure : / mmHG Vent. Rate : 136 BPM Atrial Rate : 136 BPM P-R Int : 080 ms QRS Dur : 084 ms QT Int : 378 ms P-R-T Axes : 053 045 041 degrees QTc Int : 568 ms Sinus tachycardia with short NH Nonspecific ST and T wave abnormality Abnormal ECG Confirmed by DESTIN JAQUEZ, KANE ([id number]), story editor MIKE DOMINGUEZ ([id number]) on 12/05/2022 9:13:28 AM Referred By: NEIL Confirmed By:KANE WEIR MD
--- NOTE | 2022-12-03 18:16 | NURSING ---
pt called this RN in due to having her HR beating really fast. It fills like its beating out of my chest. Hr 122 on monitor and 111 when i listened. CPS here to get EKG.
[2022-12-03 19:23] LABS: Absolute Lymphocyte Count 1.11 X10^3/uL (0.83-4.51); Absolute Neutrophil Count 10.2 X10^3/uL (2.0-7.7); Basophil# 0.05 X10^3/uL; Basophil% 0.4 % (0-1); Eosinophil# 0.09 X10^3/uL; Eosinophils% 0.7 % (0-5); Hematocrit 42.3 % (37-47); Hemoglobin 14.6 g/dL (12.0-15.0); Lymphocyte # 1.11 X10^3/ul (0.83-4.51); Lymphocyte % 9.1 % (19-41); Mean Corp Hgb Conc 34.5 g/dL (32-36); Mean Corpuscular Hgb 30.4 pg (27.0-32.0); Mean Corpuscular Volume 88.1 fL (81-99); Mean Platelet Vol. 9.8 fl (6.2-12.0); Monocyte# 0.75 X10^3/uL; Monocyte% 6.1 % (0-10); NRBC Flagged by Analyzer 0 % (0-5); Neutrophil # 10.15 X10^3/uL (2.7-7.7); Platelet Count 377 K/mm3 (150-450); RBC Distribution Width CV 11.7 % (11.6-14.6); RBC Distribution Width SD 37.5 fl (35.1-43.9); White Blood Count 12.2 K/mm3 (4.4-11.0)
[2022-12-03 19:52] LABS: Anion Gap 11 (5-15); BUN 5 mg/dL (7-18); Calcium,Total 9.6 mg/dL (8.5-10.1); Chloride 104 mmol/L (98-107); Creatinine, Serum 0.46 mg/dL (0.55-1.02); EST Glomerular Filtration Rate 157 mL/min (>60); Est Glom Filt Rate - Afr Amer 190 mL/min (>60); Estimated Creatinine Clearance 148.61 ml/min; Glucose 108 mg/dL (74-106); Magnesium 1.6 mg/dL (1.6-2.6); Potassium 3.1 mmol/L (3.5-5.1); Sodium Level 137 mmol/L (136-145)
--- NOTE | 2022-12-03 20:11 | PN.HOSP_ITS ---
Reason for Visit Reason for Visit: Diagnoses Diverticulitis of intestine, part unspecified, with perforation and abscess wit hout bleeding (11/29/22) Subjective Subjective Patient with initial complaints of frontal throbbing headache which unfortun ately sometimes she gets prompting her to check her blood pressure with elevated to take her Norvasc medication. She does not take it routinely as she reports disliking taking medications and really feels as though she does not need it. Patient also with nausea and emesis with initially concern that she was unable to keep medications down. Initially administered Zofran without improvement, added Compazine with improvement. Patient blood pressure appropriately came down with Norvasc although not completely goal but patient should not be decreased to normal immediately given she has not been appropriately treating her blood pressure, also administered IV hydralazine with some mild tachycardia following which can be a side effect of this medication. Currently she notes headache resolved, fatigued, still some mild abdominal discomfort following recent interventions. She is very eager for discharge and hoping for discharge tomorrow if she can tolerate her oral Augmentin. Patient denies fevers, chills, chest pain or dyspnea. Objective Data Objective Data Vital Signs: Vital Signs Temp Pulse Resp BP Pulse Ox O2 Del Method 98.7 F 115 H 18 137/95 H 98 Room Air 12/03/22 19:51 12/03/22 19:51 12/03/22 19:51 12/03/22 19:51 12/03/22 19:51 12/03/22 19:58 Oxygen Delivery Method Room Air Weight: 166 lb 14.239 oz Body Mass Index (BMI) 26.1 Intake & Output: Intake and Output for Last 24 Hours 12/01/22 12/02/22 12/03/22 23:59 23:59 23:59 Intake Total 6446.2533 / 6446.2533 1059.17 / 1059.17 1125.25 / 1125.25 Balance 6446.2533 / 6446.2533 1059.17 / 1059.17 1125.25 / 1125.25 Lab / Micro Data Result Diagrams: 12/03/22 19:12 12/03/22 19:12 Labs: Laboratory Results - last 24 hr 12/03/22 19:12: WBC 12.2 H, RBC 4.80, Hgb 14.6, Hct 42.3, MCV 88.1, MCH 30.4, MCHC 34.5, RDW Std Deviation 37.5, RDW Coeff of Adele 11.7, Plt Count 377, MPV 9.8, Immature Gran % (Auto) 0.700, Neut % (Auto) 83.0 H, Lymph % (Auto) 9.1 L, [place] % (Auto) 6.1, Eos % (Auto) 0.7, Baso % (Auto) 0.4, Absolute Neuts (auto) 10.2 H, Absolute Lymphs (auto) 1.11, Nucleated RBC % 0 12/03/22 19:12: Sodium 137, Potassium 3.1 L, Chloride 104, Carbon Dioxide 22.0, Anion Gap 11, BUN 5 L, Creatinine 0.46 L, Estim Creat Clear Calc 148.61, Est GFR (MDRD) Af Amer 190, Est GFR (MDRD) Non-Af 157, BUN/Creatinine Ratio 11.0, Glucose 108 H, Calcium 9.6, Phosphorus 2.0 L, Magnesium 1.6 Micro: Microbiology 11/29/22 02:55 Blood Culture (Wb) - Anticubital Left Blood Culture - Preliminary No growth in 48 hours. 11/29/22 02:30 Blood Culture (Wb) - Anticubital Right Blood Culture - Preliminary No growth in 48 hours. Physical Exam Narrative Physical Examination: General: Awake, alert, oriented x 3 and cooperative, laying in the medical surgical bed, fatigued but notes she is feeling improved. Skin: Normal color, normal turgor, no icterus, no cyanosis. HEENT: AT/NC, EOMI, PERRLA, improved, mildly dry MM, no carotid bruits or JVD noted. Lungs: Mildly diminished, greater bases, proper effort, no rales, ronchi or wheezing. Heart: Mildly tachycardic with regular rhythm; no gallop, rub audible. Abdomen: Soft, mild generalized discomfort with palpation but no severe rebound or guarding, minimally distended, hyperactive bowel sounds, no obvious HSM. Extremities: No cyanosis, clubbing, or edema. Neurological: Patient awake, alert, oriented as noted, cognitive function intact; pupils equally reactive to light and accommodation, cranial nerves II- XII grossly normal, moving all 4 extremities, no focal deficits, strength improving, mildly globally decreased. Psychiatric: Affect appears fatigued otherwise normal, no acute evidence of depressive or anxiety feelings. Assessment & Plan Assessment/Plan (1) Diverticulitis of intestine with perforation: PLAN: Plan The patient is a 47 y/o F w/ PMHx: HTN reporting only intermittent PRN usage of her hypertensive medications who presents to the [facility] ED on 11/29/22 with acute abdominal pain w/ N/V with ED evaluation c/w complicated diverticulitis in the sigmoid colon region with pericolonic gas bubbles admitted per General surgery. #1. Complicated diverticulitis with perforation: Patient treated conservatively per general surgery, admitted to medical surgical floor, maintain currently on oral antibiotics with history of rash onset with Zosyn although patient had received IV Toradol near that same time is unclear if this is the exact agent, plan transition per general surgery report to oral Augmentin if nausea and emesis controlled given current acute presentation. #2. Hypertension, uncontrolled with associated suspected headache: Patient does report headaches when her blood pressure is elevated which usually prompts her to take a blood pressure medication, importance of taking her medications daily without fail discussed at length but patient is very reticent. Patient restarted on Norvasc, will continue, as needed hydralazine did improve blood pressure but did likely cause some mild tachycardia, continue to monitor. Could consider transition to combination pill given her reticence for medication to Norvasc-benazepril if needed. #3. Tachycardia, sinus: Following usage of IV hydralazine, suspect this is likely the etiology, not severe, continue to closely monitor. #4. Hypokalemia: K+ 3.1, magnesium 1.6, supplementation will be given, repeat level in AM. #5. Hypomagnesemia: Given potassium level will supplement magnesium with 1 g x 1 with repeat level in AM. #6. Hypophosphatemia: Phosphorus level 2, will supplement with potassium phosphorus IV given also hypokalemia, repeat level in AM. #7. DVT prophylaxis: For current list not currently on any chemoprophylactic regimen, recommend at least SCDs given less mobile with acute presentation. Admission Evaluation Time spent evaluating chart, patient history, patient evaluation, care planning and discussion with specialists: 55 minutes. Charges/Coding Visit Charges Inpatient E&M: 93597 [facility] Hosp L3
[2022-12-03] MEDS: proCHLORPERazine 10 MG/2 ML Vial IV (20:18)
[2022-12-03] MEDS: Amox/Clavulanate 875 MG Tablet PO (20:55)
[2022-12-03] MEDS: Na Biphos/Potassium Phosphate PACKET 1 PACKET PO (22:02)
[2022-12-04] MEDS: Acetaminophen 325 MG Tablet 650 MG PO ×2 (01:35→07:47)
[2022-12-04 02:10] VITALS: BP 120/95; PULSE 95; RESP 18; TEMP 37.1; O2SAT 98
[2022-12-04] MEDS: Na Biphos/Potassium Phosphate PACKET 1 PACKET PO (06:15)
[2022-12-04 06:31] LABS: Absolute Lymphocyte Count 1.32 X10^3/uL (0.83-4.51); Absolute Neutrophil Count 6.1 X10^3/uL (2.0-7.7); Basophil# 0.04 X10^3/uL; Basophil% 0.5 % (0-1); Eosinophil# 0.09 X10^3/uL; Eosinophils% 1.1 % (0-5); Hematocrit 39.6 % (37-47); Hemoglobin 13.5 g/dL (12.0-15.0); Lymphocyte # 1.32 X10^3/ul (0.83-4.51); Lymphocyte % 16.1 % (19-41); Mean Corp Hgb Conc 34.1 g/dL (32-36); Mean Corpuscular Hgb 30.1 pg (27.0-32.0); Mean Corpuscular Volume 88.4 fL (81-99); Mean Platelet Vol. 9.8 fl (6.2-12.0); Monocyte% 7.3 % (0-10); NRBC Flagged by Analyzer 0 % (0-5); Neutrophil # 6.11 X10^3/uL (2.7-7.7); Neutrophil % 74.6 % (47-70); Platelet Count 372 K/mm3 (150-450); RBC Distribution Width CV 11.9 % (11.6-14.6); RBC Distribution Width SD 38.2 fl (35.1-43.9); Red Blood Count 4.48 M/mm3 (4.2-5.4); White Blood Count 8.2 K/mm3 (4.4-11.0)
[2022-12-04 07:13] LABS: ALB/GLOB Ratio 0.8 RATIO (0.9-2.4); AST(SGOT) 8 U/L (15-37); Alanine Aminotransfer ALT/SGPT 27 U/L (13-56); Albumin, Serum 3.2 g/dL (3.2-5.0); Alkaline Phosphatase 169 U/L (45-117); Anion Gap 7 (5-15); BUN 3 mg/dL (7-18); BUN/Creat Ratio 5.7 RATIO (10-20); Calcium,Total 9.2 mg/dL (8.5-10.1); Chloride 108 mmol/L (98-107); Creatinine, Serum 0.52 mg/dL (0.55-1.02); EST Glomerular Filtration Rate 134 mL/min (>60); Est Glom Filt Rate - Afr Amer 162 mL/min (>60); Estimated Creatinine Clearance 131.46 ml/min; Glucose 112 mg/dL (74-106); Magnesium 2.3 mg/dL (1.6-2.6); Potassium 3.7 mmol/L (3.5-5.1); Protein, Total 7.2 g/dL (6.4-8.2); Sodium Level 139 mmol/L (136-145)
[2022-12-04 07:19] LABS: Phosphorus 3.7 mg/dL (2.5-4.9)
--- NOTE | 2022-12-04 07:23 | PCM.PN.HOSP ---
Reason for Visit Reason for Visit: Follow-up for redness during antibiotic in face and upper chest. It has resolved. Diagnoses Diverticulitis of intestine, part unspecified, with perforation and abscess without bleeding (11/29/22) Objective Data Objective Data Vital Signs: Vital Signs Temp Pulse Resp BP Pulse Ox O2 Del Method 98.8 F 95 18 120/95 H 98 Room Air 12/04/22 02:10 12/04/22 02:10 12/04/22 02:10 12/04/22 02:10 12/04/22 02:10 12/04/22 02:18 Oxygen Delivery Method Room Air Weight: 166 lb 14.239 oz Body Mass Index (BMI) 26.1 Intake & Output: Intake and Output for Last 24 Hours 12/02/22 12/03/22 12/04/22 23:59 23:59 23:59 Intake Total 1059.17 / 1059.17 1727.25 / 1727.25 757 / 757 Balance 1059.17 / 1059.17 1727.25 / 1727.25 757 / 757 Lab / Micro Data Result Diagrams: 12/04/22 05:54 12/04/22 05:54 Labs: Laboratory Results - last 24 hr 12/03/22 19:12: WBC 12.2 H, RBC 4.80, Hgb 14.6, Hct 42.3, MCV 88.1, MCH 30.4, MCHC 34.5, RDW Std Deviation 37.5, RDW Coeff of Adele 11.7, Plt Count 377, MPV 9.8, Immature Gran % (Auto) 0.700, Neut % (Auto) 83.0 H, Lymph % (Auto) 9.1 L, [place] % (Auto) 6.1, Eos % (Auto) 0.7, Baso % (Auto) 0.4, Absolute Neuts (auto) 10.2 H, Absolute Lymphs (auto) 1.11, Nucleated RBC % 0 12/03/22 19:12: Sodium 137, Potassium 3.1 L, Chloride 104, Carbon Dioxide 22.0, Anion Gap 11, BUN 5 L, Creatinine 0.46 L, Estim Creat Clear Calc 148.61, Est GFR (MDRD) Af Amer 190, Est GFR (MDRD) Non-Af 157, BUN/Creatinine Ratio 11.0, Glucose 108 H, Calcium 9.6, Phosphorus 2.0 L, Magnesium 1.6 12/04/22 05:54: WBC 8.2, RBC 4.48, Hgb 13.5, Hct 39.6, MCV 88.4, MCH 30.1, MCHC 34.1, RDW Std Deviation 38.2, RDW Coeff of Adele 11.9, Plt Count 372, MPV 9.8, Immature Gran % (Auto) 0.400, Neut % (Auto) 74.6 H, Lymph % (Auto) 16.1 L, [place] % (Auto) 7.3, Eos % (Auto) 1.1, Baso % (Auto) 0.5, Absolute Neuts (auto) 6.1, Absolute Lymphs (auto) 1.32, Nucleated RBC % 0 12/04/22 05:54: Sodium 139, Potassium 3.7, Chloride 108 H, Carbon Dioxide 24.0, Anion Gap 7, BUN 3 L, Creatinine 0.52 L, Estim Creat Clear Calc 131.46, Est GFR (MDRD) Af Amer 162, Est GFR (MDRD) Non-Af 134, BUN/Creatinine Ratio 5.7 L, Glucose 112 H, Calcium 9.2, Magnesium 2.3, Total Bilirubin 0.40, AST 8 L, ALT 27, Alkaline Phosphatase 169 H, Total Protein 7.2, Albumin 3.2, Globulin 4.0, Albumin/Globulin Ratio 0.8 L 12/04/22 05:54: Phosphorus 3.7 Micro: Microbiology 11/29/22 02:55 Blood Culture (Wb) - Anticubital Left Blood Culture - Preliminary No growth in 48 hours. 11/29/22 02:30 Blood Culture (Wb) - Anticubital Right Blood Culture - Preliminary No growth in 48 hours. Physical Exam Narrative Erythema/tenderness has resolved. No itching. No hives or wheal formation. I do not think patient has allergy with IV antibiotic Zosyn. Patient was on antibiotic since and she developed reaction on Friday. Complain of minimal pain on left lower quadrant. Physical exam General: Alert, Oriented x3, Cooperative HEENT: Atraumatic, PERRLA, EOMI, Normocephalic Oral: No Gingival or Mucosal Lesions/ Ulcerations Neck: Supple, No JVD, Negative Carotid Bruits Lungs: Air entry diminished in bilateral lung bases. No crepitation/rhonchi Cardiovascular: Regular rate, Regular Rhythm, Normal S1, Normal S2, No murmurs Abdomen: Bowel Sounds Present, Soft, minimal tenderness over left lower quadrant, Non-Distended : No renal angle tenderness. No suprapubic tenderness. Extremities: No edema, Capillary Refill Less than 3 Seconds Skin: No rashes, No breakdown. Erythema has resolved. No itching. Musculoskeletal: No Tenderness to Palpation of Joints or Extremities Neurological: Cranial nerves II-XII grossly intact, DTR 2+/4 and Symmetrical, Neuro grossly intact Psych/Mental Status: Normal Affect, Appropriate. Assessment & Plan Assessment/Plan (1) Diverticulitis of intestine with perforation: PLAN: Plan The patient is a 47 y/o F was admitted on 11/29/2022 for acute abdominal pain with nausea and vomiting complicated with sigmoid diverticulitis with pericolonic gas bubbles admitted under General surgery. #1. Complicated diverticulitis with perforation: Patient treated conservatively per general surgery, admitted to medical surgical floor. Patient had rash onset with Zosyn although patient had received IV Toradol near that same time therefore unclear of exact etiology/agent. Patient did not had itching, hives or wheal formation therefore I do not think it was true allergic reaction. It might be rapid infusion of antibiotic. The patient has tolerated 4 days of antibiotic before that reaction happened. Antibiotic changed to oral Augmentin. Blood culture negative for 48 hours. Discussed with the surgeon. Follow-up with Dr. Acevedo as scheduled. #2. Hypertension, uncontrolled with associated suspected headache: Subjectively, patient states that she gets headache when her blood pressure is high. On amlodipine. IV hydralazine as needed, monitor BP. Her blood pressure is controlled in 120s. Patient is being discharged amlodipine 10 mg daily. Follow with PCP. #3. Tachycardia, sinus most likely due to IV hydralazine. It happened following usage of IV hydralazine, suspect this is likely the etiology, not severe, continue to closely monitor. Sinus tachycardia has resolved. #4. Hypokalemia: K+ 3.1, magnesium 1.6, potassium was replaced. Repeat potassium normal. #5. Hypomagnesemia: IV magnesium sulfate replaced. Repeat magnesium normal. #6. Hypophosphatemia: Phosphorus level 2, replaced. Repeat phosphorus normal 3.7. #7. DVT prophylaxis: For current list not currently on any chemoprophylactic regimen, recommend at least SCDs given less mobile with acute presentation. Patient is being discharged to home. Patient is medically stable. Electrolytes are in normal range. BP in normal range. Charges/Coding Visit Charges Inpatient E&M: 56420 Subs Hosp L2
[2022-12-04] MEDS: Ensure Plus High Protein 120 ML LIQUID PO (07:49)
--- NOTE | 2022-12-04 08:09 | NURSING ---
Sitting in Chair ordering breakfast. Tylenol given for a slight headache.
[2022-12-04 08:15] VITALS: BP 128/101; PULSE 94; RESP 18; TEMP 36.8; O2SAT 100
[2022-12-04] MEDS: amLODIPine 10 MG Tablet PO (09:08)
[2022-12-04] MEDS: Amox/Clavulanate 875 MG Tablet PO (09:09)
--- NOTE | 2022-12-04 10:08 | PCM.DC.SUM ---
Providers Date of Admission: 11/29/22 Primary Care Physician: Dr. Alexandro Roy MD Consultations 12/03/22 18:46 Consult: Hospitalist Routine Consulting Provider: Julia Bear Reason for Consult: htn, pounding HR EMERGENT Consult: No MD Notified: Yes Date Notified: 12/03/22 Time Notified: 18:46 Method of Notification: phone Reason For Visit: DIVERTICULITIS Diagnosis Discharge Diagnosis (1) Diverticulitis of intestine with perforation: Status: Acute Code(s): K57.80 - Diverticulitis of intestine, part unspecified, with perforation and abscess without bleeding Plan: Labs reviewed. Plan to replace phos Increase diet to include full liquids and add ensure for protein Patient continues to have pain with palpation. We will continue to keep the patient hospitalized with IV antibiotics. We will continue to monitor this patient. Possible discharge tomorrow. Medications at Discharge Home Medications amlodipine 10 mg tablet (Norvasc) 10 mg PO DAILY Check with primary doctor #10 tabs 12/04/22 amoxicillin 875 mg-potassium clavulanate 125 mg tablet 1 tab PO BIDCM 9 days #18 tabs 12/04/22 ondansetron HCl 4 mg tablet 4 mg PO Q12H 9 days #18 tabs 12/04/22 Hospital Course Summary of Care Provided Hospital Course: Patient is a 47 y/o F who presented with 1 day history of left lower abdominal pain associated with nausea, vomiting. Patient had a CT scan of the ab/pel which demonstrated perforated diverticulitis involving the sigmoid colon. No abscess. Patient was admitted for conservative measures. She was placed on IV Zosyn and monitored for pain control. No surgical intervention was performed. On 12/03, patient was noted to have an increase in her blood pressure prompting a consultation from the hospitalist. Patient was ordered to have IV hydralazine x [address] Acevedo. Patient developed a throbbing headache following the hydralazine administration. Patient was placed back on her Norvasc. Upon discharge, patient tolerated a full liquid diet with Ensure supplementation. She denies nausea, vomiting. She notes her abdominal pain/discomfort is a 1 out of 10. Her headache has greatly improved. Patient will be discharge on 9 additional days of antibiotics. She will follow-up with our office in 1 week. Physical Exam GI soft to palpation and non-distended Palpation: tender LLQ (very mild, 1 out of 10) Weight / BMI Weight Weight: 166 lb 14.239 oz Body Mass Index (BMI) 26.1 ABG / Lab / Microbiology Data Result Diagrams: 12/04/22 05:54 12/04/22 05:54 Laboratory: Laboratory Results - last 24 hr 12/03/22 19:12: WBC 12.2 H, RBC 4.80, Hgb 14.6, Hct 42.3, MCV 88.1, MCH 30.4, MCHC 34.5, RDW Std Deviation 37.5, RDW Coeff of Adele 11.7, Plt Count 377, MPV 9.8, Immature Gran % (Auto) 0.700, Neut % (Auto) 83.0 H, Lymph % (Auto) 9.1 L, [place] % (Auto) 6.1, Eos % (Auto) 0.7, Baso % (Auto) 0.4, Absolute Neuts (auto) 10.2 H, Absolute Lymphs (auto) 1.11, Nucleated RBC % 0 12/03/22 19:12: Sodium 137, Potassium 3.1 L, Chloride 104, Carbon Dioxide 22.0, Anion Gap 11, BUN 5 L, Creatinine 0.46 L, Estim Creat Clear Calc 148.61, Est GFR (MDRD) Af Amer 190, Est GFR (MDRD) Non-Af 157, BUN/Creatinine Ratio 11.0, Glucose 108 H, Calcium 9.6, Phosphorus 2.0 L, Magnesium 1.6 12/04/22 05:54: WBC 8.2, RBC 4.48, Hgb 13.5, Hct 39.6, MCV 88.4, MCH 30.1, MCHC 34.1, RDW Std Deviation 38.2, RDW Coeff of Adele 11.9, Plt Count 372, MPV 9.8, Immature Gran % (Auto) 0.400, Neut % (Auto) 74.6 H, Lymph % (Auto) 16.1 L, [place] % (Auto) 7.3, Eos % (Auto) 1.1, Baso % (Auto) 0.5, Absolute Neuts (auto) 6.1, Absolute Lymphs (auto) 1.32, Nucleated RBC % 0 12/04/22 05:54: Sodium 139, Potassium 3.7, Chloride 108 H, Carbon Dioxide 24.0, Anion Gap 7, BUN 3 L, Creatinine 0.52 L, Estim Creat Clear Calc 131.46, Est GFR (MDRD) Af Amer 162, Est GFR (MDRD) Non-Af 134, BUN/Creatinine Ratio 5.7 L, Glucose 112 H, Calcium 9.2, Magnesium 2.3, Total Bilirubin 0.40, AST 8 L, ALT 27, Alkaline Phosphatase 169 H, Total Protein 7.2, Albumin 3.2, Globulin 4.0, Albumin/Globulin Ratio 0.8 L 12/04/22 05:54: Phosphorus 3.7 Microbiology: Microbiology 11/29/22 02:30 Blood Culture (Wb) - Anticubital Right Blood Culture - Final No growth in 5 days. 11/29/22 02:55 Blood Culture (Wb) - Anticubital Left Blood Culture - Final No growth in 5 days. Meaningful Use Info Meaningful Use Diagnoses (Choose all that apply): None applicable Discharge Plan Admission Admit Date/Time: 11/29/22 08:45 Primary Reason for Your Visit: Acute complicated diverticulitis Attending Provider: Nik Acevedo Primary Care Provider: Alexandro Roy Consulting Providers: Miguel Can Instructions Additional Instructions / Restrictions: You will be prescribed an antibiotic x 9 days, Augmentin. We are recommending you take an antinausea medication, Zofran, 30 minutes prior to the Augmentin. We also recommend taking the Augmentin with food to avoid any GI upset. You will continue a full liquid diet, low in fiber until you follow-up with our office in 1 week. We are recommending Ensure protein shakes three times per day for additional protein building. We are going to recommend you have a colonoscopy in approximately 5 weeks You will need to schedule an appointment with your PCP, Dr. Roy, for blood pressures issues to come up with a better regimen for blood pressure control. Discharge Orders/Prescriptions Prescriptions: New amoxicillin-pot clavulanate 875-125 mg Tablet 1 tab PO BIDCM 9 Days Qty: 18 0RF ondansetron HCl 4 mg tablet 4 mg PO Q12H 9 Days Qty: 18 0RF Continued amlodipine [Norvasc] 10 mg Tablet 10 mg PO DAILY Qty: 10 0RF Referrals / Follow Up: Alexandro Roy MD [Primary Care Provider] - (Contact their office for a 1 week follow-up appointment for hypertension. ) Nik Acevedo MD [Med Staff - Active Staff] - (Follow-up next Friday with Dr. Acevedo. You will need to contact our office to schedule the appointment.) Disposition Disposition (needs filled in before D/C Order can be placed): Home, Self Care Charges/Coding Visit Charges Inpatient E&M: 79691 Disch Hosp >30min
[2022-12-04 10:57] VITALS: BP 114/98; PULSE 89; RESP 17; TEMP 36.6; O2SAT 98
== END 2022-12-04 11:23 | disposition home or self-care (01) | DRG 392 ==
LOC: ED 11-29 02:46 → PCU 11-29 08:53 → MS3 12-02 16:14
PROVIDERS: Family Medicine; Surgery; Admitting Provider Surgery; Emergency Provider Emergency Medicine; Visit Provider Surgery
DX: K57.20 Diverticulitis of large intestine with perforation and abscess without bleeding (principal); E83.39 Other disorders of phosphorus metabolism; E83.42 Hypomagnesemia; E87.6 Hypokalemia; I10 Essential (primary) hypertension; R51.9 Headache, unspecified; R00.0 Tachycardia, unspecified; T46.5X5A Adverse effect of other antihypertensive drugs, initial encounter; R21 Rash and other nonspecific skin eruption
CPT/HCPCS: 36415; 74177; 80048; 80053; 81001; 83735; 84100; 84703; 85025; 87040; 93005; 99283; J7030; J7040; J7050; Q9967; A4216; J2405

== ENCOUNTER 2023-01-23 09:09 | Day surgery (SDC) | payer OTHER, BC, SELFPAY ==
[2023-01-23] VITALS (8 sets, daily range): BP systolic 91–108; BP diastolic 72–87; PULSE 58–86; RESP 16–18; TEMP 36–36.6; O2SAT 99–100; BMI 25.0
[2023-01-23] MEDS: Lactated Ringers 1,000 ML 15 ML IV (09:54)
--- NOTE | 2023-01-23 10:15 | COLBX_PTH ---
PATIENT: MEL SOLIS LOC: EN U#:[id number] AGE/SX: 47/F ROOM: RE01/23/[address]: Dr. Nik Acevedo MD : 1975 BED: DIS: 01/23/2023 SPEC #: [id number] RECD: 01/23/23 14:07 STATUS: LIBERTY WINSTONAbeba #: [id number] BRANDO: 01/23/23 10:[address]: Nik Acevedo DEPT: SURGICAL PATHOLOGY RECD BY: Mayra Watson ENTERED: 01/24/23 08:51 SP TYPE: COLON BX OTHR DR: Miguel A Pride, DIRECTOR OF CUSTOMER SERVICE-C Tissues: A - Cecum, NOS B - Sigmoid colon biopsy Procedures: Surgery Specimen Level IV HEADER OPERATION: Colonoscopy (MAC), biopsy, polypectomy, endoscopic tattoo PRE-OP DIAGNOSIS: Diverticulitis of intestine with perforation TISSUE SUBMITTED: A ? Cecal polyp biopsy, B ? 40.0 cm sigmoid biopsy MICROSCOPIC DIAGNOSIS A. Cecal polyp, biopsy: Tubular adenoma. B. Sigmoid colon at 40 cm, biopsy: Ulceration with associated acute and chronic inflammation and granulation. AM:gayathri 01/27/2023 MICROSCOPIC DESCRIPTION Slides are reviewed. GROSS DESCRIPTION A - Received in fixative is one container labeled with the patient's name and designated cecal polyp biopsy. The specimen consists of one irregular fragment of light naylor soft tissue that measures 0.3 x 0.3 x 0.1 cm. The specimen is totally submitted in one cassette. B - Received in fixative is one container labeled with the patient's name and designated 40.0 cm at sigmoid biopsy. The specimen consists of multiple irregular fragments of light naylor soft tissue that in aggregate measure 1.0 x 0.5 x 0.1 cm. The specimen is totally submitted in one cassette. / SJ:gayathri 01/24/2023 TC:2 CPT: 89158 x2
--- NOTE | 2023-01-23 10:47 | HP.PCM_ITS ---
History and Physical Date of Admission: 01/23/23 Date of Service:? 12/10/22 MR#: [id number] Acct: [id number] Name:? MEL SOLIS Rep #: [id number] : 1975 ? ? Provider: Dr. Nik Acevedo MD Age/Sex:? 47/F ? ? Location: [facility] Status: Signed Intake Vital Signs ? 12/03/2311:00 Height 5 ft 7 in Intake Visit Reasons:?DIVERTICULITIS 12/04 Chief Complaint: diverticulitis 12/04 Is patient in pain?: No Allergies lisinopril Adverse Reaction (Verified 12/10/22 08:37) Other Medications amlodipine 10 mg tablet (Norvasc) 10 mg PO DAILY Check with primary doctor #10 tabs 12/04/22 [Rx Confirmed 12/10/22] amoxicillin 875 mg-potassium clavulanate 125 mg tablet 1 tab PO BIDCM 9 days #18 tabs 12/04/22 [Rx Confirmed 12/10/22] ondansetron HCl 4 mg tablet 4 mg PO Q12H 9 days #18 tabs 12/04/22 [Rx Confirmed 12/10/22] Subjective Details: Patient returns to the clinic following a ahead of schedule office visit on 12/06/2022 due to increased pain and nausea.? She presents today stating that she has next to no pain and is experiencing only mild nausea.? As an aside she confirms that her headaches and blood pressure both improved as well.? She reports that she did have an appointment with her primary care provider yesterday and now has a full prescription for amlodipine.? She believes she is ready to return to work. Below is recapitulated from patient's prior office visit for ease of review: Patient is a 47-year-old female who makes ahead?of?schedule post hospital discharge visit for acute diverticulitis after an inpatient stay for a complicated diverticulitis that ended earlier this week.? She reports that she awoken this morning with some increased pain which she rates at a 2 or 3 out of 10.? She notes this proceeded a bowel movement that she had later in the day and did not seem to affect this pain in a meaningful way.? She has been measuring her temperature at home and denies any objective fevers.? She also denies feeling any chills at home.? She confirms that she has been able to tolerate regular oral intake and reports consuming 3 ensures per day plus ice cream. Objective Details: Constitutional: No acute distress, cooperative, appreciative Abdomen: Nondistended, mild urticarial rash along lower abdomen, soft, minimally tender to palpation (deep palpation) Coding Level of Care Code Off vis,est,level 3 Diagnoses Diverticulitis of intestine with perforation? K57.80 [facility] Medical History? delivery delivered Hypertension Ovarian cyst Social History? Smoking Status:? Never smoker Assessment and Plan (No Qualifiers) Assessment and Plan (1) Diverticulitis of intestine with perforation: ?Status:?Acute ?Comment: This is a 47-year-old female who was discharged last week?on 12/04/2022?following an inpatient admission and conservative management for diagnosis of acute, complicated diverticulitis with pericolonic free air.? She reports today for her scheduled visit stating that her pain is significantly improved.? Fortunately she also states that the recommended prune juice and senna were effective in managing her constipation and that she is now having bowel movements regularly.? She is nearing the end of her antibiotic prescription and is eager to return to work.? I have discussed with her scheduling a diagnostic colonoscopy in 5 weeks to evaluate the area of her pain as well as survey the remainder of the colon.? She accepts this recommendation and is prepared to schedule today.? Given her clinical improvements, I will release her to return to work. ?Plan: ? Complete prescribed Augmentin ? Advance diet as tolerated starting with soft, low residue diet with protein supplements ? Diagnostic colonoscopy in 5 weeks.? Prep discussed.? 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 Patient cleared to return to work I have examined the patient the following changes are noted: Patient presents today for diagnostic colonoscopy following a bout of complicated diverticulitis in November 2022. She notes today that she has had some mild left lower quadrant abdominal discomfort, but nothing to the intensity that she experienced previously. She denies any fevers or chills at home. She denies any change to her bowel habits. She confirms she completed a prep for today's procedure and the output was initially sludgy, but this morning more recently it has just been marked by a little bit of sediment. Given this description I am confident we can complete the scope even if additional lavage is required. Therefore we will proceed to endoscopy suite for diagnostic colonoscopy as discussed above.
--- NOTE | 2023-01-23 12:06 | OP.CCLET_ITS ---
01/23/2023 Alexandro Roy Re : Colonoscopy procedure for Abdi Fields Dear Manuela This procedure was performed on December. My impressions and recommendations are as follows: Impressions : - Diverticulosis in the sigmoid colon. No specimens collected. - One 12 mm polyp in the mid sigmoid colon. Tattooed. Biopsied. - The examination was otherwise normal on direct and retroflexion views. - One 3 mm polyp in the cecum. Biopsied. Recommendations : - Discharge patient to home (via wheelchair). - Low fiber diet today. - Await pathology results. - Repeat colonoscopy date to be determined after pending pathology results are reviewed for surveillance based on pathology results. - Telephone my office for pathology results in 1 week. - Continue present medications. My findings are described in the full procedure note, which is enclosed. If I can be of further assistance, please feel free to contact me at Doctor phone number(s): , Work: . Sincerely, Nik Acevedo MD 01/23/2023 12:05:33 PM This report has been signed electronically.
--- NOTE | 2023-01-23 12:06 | OP.COLON_ITS ---
Patient Name: Abdi Fields Procedure Date: 01/23/2023 10:46 AM Date of : 1975 Age: 47 Procedure: Colonoscopy Indications: Diverticulitis Providers: Nik Acevedo MD Medicines: See the Anesthesia note for documentation of the administered medications Patient Profile: Last Colonoscopy: none. The patient's first colonoscopy is today. Complications: No immediate complications. Estimated blood loss: Minimal. Procedure: Pre-Anesthesia Assessment: - The heart rate, respiratory rate, oxygen saturations, blood pressure, adequacy of pulmonary ventilation, and response to care were monitored throughout the procedure. After I obtained informed consent, the scope was passed under direct vision. Throughout the procedure, the patient's blood pressure, pulse, and oxygen saturations were monitored continuously. The Colonoscope was introduced through the anus and advanced to the cecum, identified by the appendiceal orifice, IC valve and transillumination. The colonoscopy was somewhat difficult due to a tortuous colon. Successful completion of the procedure was aided by withdrawing and reinserting the scope. The patient tolerated the procedure well. The quality of the bowel preparation was adequate to identify polyps 6 mm and larger in size. Scope In: 10:55:17 AM Scope Withdrawal Time 0 hours 52 minutes 1 second Scope Out: 11:54:55 AM Total Procedure Duration Time 0 hours 59 minutes 38 seconds Findings: A few medium-mouthed diverticula were found in the sigmoid colon. No biopsies or other specimens were collected for this exam. A 12 mm polyp was found in the mid sigmoid colon. The polyp was sessile. Area was tattooed with an injection of 1 mL of Jeri ink. Biopsies were taken with a cold forceps for histology. Biopsies were taken with a cold forceps for histology. Estimated blood loss was minimal. The exam was otherwise without abnormality on direct and retroflexion views. A 3 mm polyp was found in the cecum. The polyp was semi-sessile. Biopsies were taken with a cold forceps for histology. Estimated blood loss was minimal. Impression: - Diverticulosis in the sigmoid colon. No specimens collected. - One 12 mm polyp in the mid sigmoid colon. Tattooed. Biopsied. - The examination was otherwise normal on direct and retroflexion views. - One 3 mm polyp in the cecum. Biopsied. Recommendation: - Discharge patient to home (via wheelchair). - Low fiber diet today. - Await pathology results. - Repeat colonoscopy date to be determined after pending pathology results are reviewed for surveillance based on pathology results. - Telephone my office for pathology results in 1 week. - Continue present medications. Procedure Code(s): --- Professional --- 02117, Colonoscopy, flexible; with directed submucosal injection(s), any substance 42104, Colonoscopy, flexible; with biopsy, single or multiple Diagnosis Code(s): --- Professional --- D12.5, Benign neoplasm of sigmoid colon D12.0, Benign neoplasm of cecum K57.32, Diverticulitis of large intestine without perforation or abscess without bleeding K57.30, Diverticulosis of large intestine without perforation or abscess without bleeding CPT copyright 2017 [employer]. All rights reserved. The codes documented in this report are preliminary and upon fiber optics engineer review may be revised to meet current compliance requirements. Nik Acevedo MD 01/23/2023 12:05:33 PM This report has been signed electronically. Number of Addenda: 0 Note Initiated On: 01/23/2023 10:46 AM
== END 2023-01-23 12:58 | disposition home or self-care (01) ==
LOC: EN 09:16 → AC 09:19
PROVIDERS: PCP Nurse Practitioner Family; Referring Provider Nurse Practitioner Family; Visit Provider Surgery
PROC: 0DJD8ZZ Inspection of Lower Intestinal Tract, Via Natural or Artificial Opening Endoscopic (ICD-10-PCS; CPT 45378; principal; 2023-01-23 10:10)
DX: K63.3 Ulcer of intestine (principal); K57.20 Diverticulitis of large intestine with perforation and abscess without bleeding; I10 Essential (primary) hypertension; K21.9 Gastro-esophageal reflux disease without esophagitis; D12.0 Benign neoplasm of cecum
CPT/HCPCS: 45381; 45380; 88305; J7120; A4648; J2405